=== PATIENT | female | born 1955 | race Caucasian/White ===

== ENCOUNTER 2018-10-08 18:46 | Inpatient (IN) | payer MEDICARE, OTHER ==
[2018-10-08] MEDS ORDERED: NS 0.9% 500 ML* 500 ML IV ONE (19:08)
[2018-10-08] MEDS ORDERED: NS 0.9% 1000 ML** 1,000 ML IV.FLUID IV ONE (19:12)
[2018-10-08 19:36] LABS: ABS Basophils 0 10^3/ul (0-0.2); ABS Eosinophils 0 10^3/ul (0-0.6); ABS Lymphocytes 0.3 10^3/ul (1.0-4.8); ABS Monocytes 0.2 10^3/ul (0-0.8); ABS Neutrophils 1.9 10^3/ul (1.5-7.7); ABS Nucleated RBC 0 10^3/ul; Eosinophil % 0 %; Hematocrit 29 % (35-47); Mean Corpuscular HGB Conc 35 g/dl (31-36); Mean Corpuscular Hemoglobin 38 pg (27-31); Mean Corpuscular Volume 110 fL (80-97); Mean Platelet Volume 6.9 fL (7.4-10.4); Nucleated Red Blood Cells % 0; Platelet Count 169 10^3/ul (150-450); Red Blood Count 2.64 10^6/ul (4.00-5.40); Red Cell Distribution Width 16 % (10.5-15); White Blood Count 2.3 10^3/ul (3.5-10.8)
--- NOTE | 2018-10-08 19:37 | ED ---
Influenza-Like Illness - HPI Summary HPI Summary: Patient is a 63-yea-old female with hx of peritoneal cancer and HTN presenting with 2 day hx cough, fatigue, and fever. Patient notes a fever of 104 orally at home prior to arrival, and 101 yesterday morning. She has been taking ibuprofen and hydrocodone. She is also experiencing congestion and decreased appetite. Denies sore throat, nausea, vomiting, or diarrhea. Patient recently began chemotherapy again in August with last treatment 2 weeks ago for peritoneal cancer and follows up with Dr. Cleveland. Denies receiving flu shot this year. No known sick contacts at home. She denies any chest pain and shortness of breath only with cough. no urinary symptoms or rash. She has no history of asthma or COPD. She is a smoker. - History of Current Complaint Chief Complaint: EDFluSymptoms Time Seen by Provider: 10/08/18 19:10 Hx Obtained From: Patient Onset/Duration: Gradual Onset, Lasting Days - symptom onset 2 days ago Severity: Moderate Associated Signs & Symptoms: Fever, Myalgia, Cough, Headache - mild - Risk Factors Influenza Risk Factors: Chronic Medical or Immunosuppresive Condition - Peritoneal cancer with chemotherapy - Allergy/Home Medications Allergies/Adverse Reactions: Allergies Allergy/AdvReac Type Severity Reaction Status Date / Time hydrochlorothiazide Allergy Intermediate Tachycardia Verified 05/18/18 09:37 ADHESIVE AND ADHESIVE TAPES Allergy RED Uncoded 05/18/18 09:37 PMH/Surg Hx/FS Hx/Imm Hx Endocrine/Hematology History: Denies: Hx Diabetes, Hx Systemic Lupus Erythematosus, Hx Anemia Cardiovascular History: Reports: Hx Hypertension Denies: Hx Aneurysm, Hx Angina, Hx Angioplasty, Hx Auto Implanted Cardiovert Defib, Hx Cardiac Arrest, Hx Cardiomegaly, Hx Congenital Heart Disease, Hx Congestive Heart Failure, Hx Coronary Artery Disease, Hx Deep Vein Thrombosis, Hx Pacemaker/ICD Respiratory History: Denies: Hx Asthma, Hx Chronic Obstructive Pulmonary Disease (COPD) Comment Only: Other Respiratory Problems/Disorders - INFUSAPORT INSERTION GI History: Reports: Other GI Disorders - diverticulitis, heartburn, HX History: Denies: Hx Dialysis, Hx Renal Disease Musculoskeletal History: Reports: Other Musculoskeletal History - pt states legs and feet sometimes ache/hurt Denies: Hx Rheumatoid Arthritis Sensory History: Reports: Hx Contacts or Glasses - GLASSES Denies: Hx Hearing Aid Opthamlomology History: Reports: Hx Contacts or Glasses - GLASSES Neurological History: Reports: Hx Migraine - OCCASIONAL, Other Neuro Impairments /Disorders - pt states slight neuropathy in feet Psychiatric History: Denies: Hx Panic Disorder - Cancer History Cancer Type, Location and Year: Ovarian AND PRIMARY - PERITONEAL Hx Chemotherapy: Yes Hx Radiation Therapy: No - Surgical History Surgery Procedure, Year, and Place: 1984 ;. 10/03/13 AND 10/22/13 [facility] ABDOMINAL SURGERY TO REMOVE CANCER (SEVERAL TO THE ABD WALL WHERE ABSCESS WAS) ;. APPENDECTOMY. TOTAL HYSTERECTOMY ;. POWER PORT Hx Anesthesia Reactions: No Infectious Disease History: No Infectious Disease History: Denies: Traveled Outside the [place] in Last 30 Days - Family History Known Family History: Positive: Other - No - Maligant Hypothermia - Social History Alcohol Use: None Alcohol Amount: 2 BEERS/WEEK Substance Use Type: Reports: None Smoking Status (MU): Former Smoker Type: Cigarettes Amount Used/How Often: 6 CIGARETTES PER DAY Length of Time of Smoking/Using Tobacco: 30 YEARS Have You Smoked in the Last Year: Yes Review of Systems Positive: Fever, Fatigue Negative: Palpitations, Chest Pain Positive: Cough. Negative: Shortness Of Breath Negative: Abdominal Pain, Vomiting, Diarrhea, Nausea Positive: no symptoms reported. Negative: dysuria, pain Positive: Myalgia Positive: Headache All Other Systems Reviewed And Are Negative: Yes Physical Exam Triage Information Reviewed: Yes Vital Signs On Initial Exam: Initial Vitals Temp Pulse Resp BP Pulse Ox 99.6 F 101 18 86/53 91 10/08/18 18:47 10/08/18 18:47 10/08/18 18:47 10/08/18 18:47 10/08/18 18:47 Vital Signs Reviewed: Yes Appearance: Positive: Well-Appearing, No Pain Distress, Well-Nourished Skin: Positive: Warm, Dry Head/Face: Positive: Normal Head/Face Inspection Eyes: Positive: Normal, EOMI, KALINA ENT: Positive: Normal ENT inspection, Pharynx normal, TMs normal. Negative: Nasal drainage, Tonsillar swelling, Tonsillar exudate Neck: Positive: Supple, Nontender, No Lymphadenopathy Respiratory/Lung Sounds: Positive: Clear to Auscultation, Breath Sounds Present Cardiovascular: Positive: Normal - Pulse 1+ upper extremity, Tachycardia. Negative: IRR, Murmur Abdomen Description: Positive: Nontender, No Organomegaly, Soft Bowel Sounds: Positive: Present Musculoskeletal: Positive: Normal, Strength/ROM Intact Neurological: Positive: Normal, Sensory/Motor Intact, Alert, Oriented to Person Place, Time Psychiatric: Positive: Normal, Affect/Mood Appropriate Diagnostics - Vital Signs Vital Signs Temp Pulse Resp BP Pulse Ox 10/08/18 18:47 99.6 F 101 18 86/53 91 - Laboratory Result Diagrams: 10/08/18 19:21 10/08/18 19:21 Lab Statement: Any lab studies that have been ordered have been reviewed, and results considered in the medical decision making process. - Radiology chest Radiology Interpretation Completed By: ED Physician Summary of Radiographic Findings: left lower lobe pneumonia - EKG No standard instances Cardiac Rate: NL EKG Rhythm: Sinus Rhythm EKG Comparison: No Significant Change Summary of EKG Findings: sinus rhythm, similiar to previous Re-Evaluation - Re-Evaluation First Eval Re-Evaluation Time: 20:15 Comment: no SOB at this time. O2 90. bp is 69/34 but is asympatomatic. did not take her blood pressure meds today. Second Eval Re-Evaluation Time: 20:41 Comment: discussed flu results. bp is now 77/47. Flu Symptom Course/Dx - Course Course Of Treatment: Patient presented to the ED with 2 day hx of cough, fever, and fatigue. Patient reported temperature of 104 today and 101 yesterday. She is currently recieving chemotherapy for peritoneal cancer, and denies reciving flu vaccine this year. Temperature of 99.6, BP 86/53, HR 101, and O2 91% upon arrival. Posterior Pharynx without erythema. Lungs CTA. RRR. Diminished radial pulse. Labs and cultutes were ordered. EKG reads NSR similar to previous visits. CXR findings suggestive of possible pneumonia in left lower lobe. flu A positive so gave tamiflu. Patient recieved IV fluids and was placed on cefepime. Will continue to monitor until vitals normalize. discussed with dr chavez who states patient should be admitted due to vitals. discussed with dr serrano who agrees to admit. - Diagnoses Differential Diagnosis/HQI/PQRI: Positive: Influenza, Pneumonia, Upper Respiratory Infection Provider Diagnoses: Influenza A, Pneumonia Critical Care Time: 30-74 min - 40 mins Discharge - Sign-Out/Discharge Documenting (check all that apply): Patient Departure Patient Received Moderate/Deep Sedation with Procedure: No - Discharge Plan Condition: Guarded Disposition: ADMITTED TO [facility] - Billing Disposition and Condition Condition: GUARDED Disposition: Admitted to [facility]
[2018-10-08 19:42] LABS: Activated Partial Thrombo Time 29.9 seconds (26.0-36.3); INR 1.02 (0.77-1.02)
[2018-10-08] MEDS ORDERED: Cefepime(*) 2 GM in NS 0.9% 50 ML* 50 ML IVPB ONE (19:42)
[2018-10-08] MEDS ORDERED: Levofloxacin 750 MG IVPREMIX(* 750 MG/150 ML BAG IVPB ONE (19:42)
[2018-10-08 19:46] LABS: ALT 29 U/L (7-52); AST 32 U/L (13-39); Albumin/Globulin Ratio 1.7 (1-3); Alkaline Phosphatase 57 U/L (34-104); Anion Gap 10 mmol/L (2-11); BUN/Creatinine Ratio 10.5 (8-20); Blood Urea Nitrogen 13 mg/dL (6-24); CO2 Carbon Dioxide 24 mmol/L (22-32); Calcium 8.6 mg/dL (8.6-10.3); Chloride 96 mmol/L (101-111); EGFR African American 53.2 (>60); Globulin 2.3 g/dL (2-4); Glucose 150 mg/dL (70-100); Potassium 3.1 mmol/L (3.5-5.0); Sodium 130 mmol/L (135-145); Total Protein 6.3 g/dL (6.4-8.9)
[2018-10-08] MEDS ORDERED: Potassium Chlor TAB* 20 MEQ TAB.ER PO ONE (19:49)
[2018-10-08] MEDS ORDERED: NS 0.9% 1000 ML** 1,000 ML IV ONE (20:08)
[2018-10-08 20:26] LABS: Influenza A Molecular POSITIVE (Negative)
[2018-10-08] MEDS ORDERED: NS 0.9% 50 ML* 50 ML ONE (20:29)
[2018-10-08] MEDS ORDERED: Oseltamivir CAP* 75 MG CAP PO ONE (20:32)
[2018-10-08] MEDS ORDERED: Cefepime* 2 GM in Dextrose 50mL Q24H (Duplex) IV ONE (21:00)
[2018-10-08] MEDS ORDERED: Phytonadione IV (Adult)* 10 MG/ML 1 ML AMP IV ONE (21:15)
[2018-10-08 21:26] LABS: C Reactive Protein 94.73 mg/L (<8.01)
[2018-10-08 21:53] LABS: Magnesium 1.4 mg/dL (1.9-2.7)
[2018-10-08] MEDS ORDERED: Magnesium Chloride EC TAB* 64 MG PO ONE (22:09)
[2018-10-08] MEDS ORDERED: Magnesium Sulfate IV* 3 GM in NS 0.9% 100 ML* 100 ML IVPB ONE (22:54)
[2018-10-08] MEDS ORDERED: NS 0.9% 1000 ML** 1,000 ML IV SCH (23:00)
[2018-10-09] MEDS ORDERED: Melatonin 3 MG TAB PO PRN (00:04)
[2018-10-09] MEDS ORDERED: Acetaminophen TAB* 325 MG ONE (00:05)
[2018-10-09] MEDS: Acetaminophen TAB* 325 MG PO PRN ×2 (00:08→11:47)
[2018-10-09] MEDS: Heparin VIAL(*) 5000 UNITS/ML VIAL (FIVE THOUSAND) SUBCUT SCH ×4 (00:56→21:35)
--- NOTE | 2018-10-09 01:19 | HP ---
CC: Dr. Cleveland * HISTORY AND PHYSICAL: DATE OF ADMISSION: 10/08/18 PROVIDER: Leila Iyer NP PRIMARY CARE PROVIDER: Dr. Cleveland. ATTENDING PHYSICIAN WHILE IN THE HOSPITAL: Dr. Krysten Driscoll * (dictated by Leila Iyer NP). CHIEF COMPLAINT: Fatigue and cough. HISTORY OF PRESENT ILLNESS: Ms. Sotvall is a 63-year-old female with a past medical history significant for hypertension, history of CVA, and peritoneal cancer, currently on chemo, who presented to the emergency room with complaints of increased fatigue x2 days and decreased appetite. The patient reports that she has had a cough for approximately 1 week and on Friday started feeling poorly with increased fatigue and decreased appetite. The patient also reports that she had fevers and chills at home. Due to the increased fatigue and cough , she presented to the emergency room for further evaluation. While in the emergency room, the patient had routine lab work drawn. She was found to be hypotensive and positive for influenza A as well as questionable right-sided pneumonia on chest x-ray. The patient denies any chest pain or edema. Denies any coughing up blood or shortness of breath. Denies any nausea , vomiting, diarrhea, or abdominal pain. Denies any urinary frequency or urgency. She denies any joint or muscle aches. Denies any rashes, lesions, or open sores. PAST MEDICAL HISTORY: Significant for: 1. Hypertension. 2. History of CVA. 3. History of peritoneal cancer, currently on chemo. PAST SURGICAL HISTORY: 1. . 2. Right knee surgery. 3. Hysterectomy. 4. Appendectomy. 5. Peritoneal scraping. HOME MEDICATIONS: 1. Amlodipine 5 mg p.o. daily. 2. Atorvastatin 40 mg p.o. daily. 3. Compazine 10 mg p.o. q.8 hours as needed for nausea. 4. Oxycodone 5 mg p.o. q.6 hours as needed for pain. 5. Zofran 8 mg p.o. daily as needed for nausea. 6. Omeprazole 40 mg p.o. q.a.m. 7. Multivitamin 1 tablet p.o. daily - the patient currently reports she is currently not taking. 8. Metoprolol 50 mg p.o. b.i.d. 9. Magnesium oxide 400 mg p.o. t.i.d. 10. Lorazepam 1 mg p.o. t.i.d. as needed. 11. Lisinopril 40 mg p.o. daily. ALLERGIES: Allergy to: 1. HYDROCHLOROTHIAZIDE. 2. ADHESIVE TAPE. FAMILY HISTORY: No reported history of cancer. SOCIAL HISTORY: The patient reports she smokes half a pack per day. Reports occasional alcohol use. Denies any illicit drug use. She is . She lives with her . Surrogate decision maker in the event she is unable to make her own decisions is her . She is a full code. REVIEW OF SYSTEMS: She does report fevers and decreased appetite at home. Denies any chest pain or edema. She does report a cough. Denies any hemoptysis or shortness of breath. Denies any nausea, vomiting, diarrhea, or abdominal pain. Denies any hematuria, dysuria, focal weakness, or sensory loss. Denies any visual complaints, dysphagia, arthralgias, myalgias, rashes, lesions, psychosis, or anxiety. PHYSICAL EXAMINATION GENERAL: At this time, Ms. Stovall is a 63-year-old female. She appears well, resting on the stretcher in the emergency room. She is not in any acute distress. VITAL SIGNS: Blood pressure 96/55, heart rate is 83, O2 saturation 96%, temperature was 99.6. HEENT: Head is atraumatic, normocephalic. Eyes: EOMs are intact. Sclerae anicteric and not pale. Oral mucosa appeared to be dry. NECK: Supple. LUNGS: Clear to auscultation bilaterally. No wheezes, rales, or rhonchi. CARDIAC: S1, S2. Regular rate and rhythm. No murmurs, rubs, or gallops. ABDOMEN: Soft and nontender. Bowel sounds are present x4. EXTREMITIES: Pedal pulses are +2 bilaterally. She is able to move all 4 extremities with 5/5 strength. NEUROLOGIC: She is awake, alert, and oriented x3. Speech is clear. Thought process is intact. No gross focal deficits. SKIN: Intact. LABORATORY DATA AND DIAGNOSTIC STUDIES: WBCs are 2.3, RBCs 2.64, hemoglobin 10 , hematocrit was 29, platelet count 169. INR 1.02. Sodium 130, potassium 3.1, chloride 96, creatinine 1.24, glucose was 150. Lactic acid was 2.0 and repeat was 0.7. Calcium 8.6, magnesium 1.4. ASTs were 32, ALTs were 29. Troponin 0.00. C-reactive protein was 94.73. Lipase was less than 10. Flu A was positive. She had a chest x-ray which was reviewed by myself and Dr. Driscoll, concern for right- sided pneumonia. Electrocardiogram showed sinus rhythm at a rate of 87. ASSESSMENT AND PLAN: Ms. Stovall is a 63-year-old female with a past medical history of peritoneal cancer, hypertension, and history of cerebrovascular accident who presented to the emergency room with complaints of fatigue, weakness, and cough. We were asked to see and evaluate her due to concern for influenza and pneumonia. She will be admitted under observation for: 1. Influenza A. The patient will be placed on Tamiflu 75 mg p.o. b.i.d. for 5 days. We will treat her fever symptomatically with Tylenol as needed. 2. Shortness of breath. I suspect the patient has right-sided pneumonia. We will place her on azithromycin and ceftriaxone. I suspect this could also be related to influenza. We will continue to treat her with Tamiflu 75 mg p.o. b.i.d. We will continue IV fluids. I will give her another liter bolus and then continue fluids at 150 an hour. I will send urine for legionella and Strep pneumoniae. She had blood cultures, are currently pending. Urine culture is pending. 3. Peritoneal cancer. Management per Oncology. 4. Hypokalemia. We will give her potassium 40 mEq IV and repeat her potassium level in the morning. She did receive 20 mEq p.o. in the emergency room. 5. Hypomagnesemia. She will given 3 g of magnesium IV and repeat a mag level in the a.m. 6. Acute kidney injury. She does have an elevated creatinine. We will give her IV hydration. I suspect this could be related to dehydration as the patient has had a decreased appetite for the past several days. We will repeat BMP in the a.m. 7. Hypertension. The patient is hypotensive at this time. I am going to hold her amlodipine, lisinopril, and metoprolol at this time. We can resume these as blood pressure allows. 8. FEN. The patient can have a heart healthy, decaf okay diet. 9. Code status. She is a full code. 10. DVT prophylaxis. We will place her on heparin subcu. 11. Disposition. The patient will be placed inpatient and transferred to oncology service in the a.m. TIME SPENT: Time spent on this admission was approximately 60 minutes, greater than half that time was spent [id number] with the patient obtaining my history and physical, the other half time was spent going over my plan of care and implementing my plan of care. I have discussed this with my attending, Dr. Krysten Driscoll; she is in agreement with my plan. LEILA IYER, VARNISH BLENDER [id number]/CPS #: [id number] KARLENE
[2018-10-09] MEDS: LORazepam TAB(*) 1 MG PO PRN ×2 (01:37→21:36)
[2018-10-09 02:19] LABS: Urine Appearance Clear; Urine Bilirubin Negative (Negative); Urine Blood Negative (Negative); Urine Color Straw; Urine Glucose Negative (Negative); Urine Ketones Negative (Negative); Urine Nitrite Negative (Negative); Urine Protein Negative (Negative); Urine Specific Gravity 1.005 (1.010-1.030); Urine Urobilinogen Negative (Negative)
[2018-10-09] MEDS ORDERED: KCL 20 MEQ/100 ML IVPREMIX* 20 MEQ/100 ML BAG IV SCH (03:17)
[2018-10-09] MEDS: NS 0.9% 1000 ML** 1,000 ML IV SCH ×3 (03:43→16:16)
[2018-10-09] MEDS: KCL 20 MEQ/100 ML IVPREMIX* 20 MEQ/100 ML BAG IV SCH ×3 (03:44→06:35)
[2018-10-09] MEDS ORDERED: NS 0.9% 500 ML* 500 ML IV ONE (03:59)
[2018-10-09 05:29] LABS: ABS Basophils 0 10^3/ul (0-0.2); ABS Eosinophils 0 10^3/ul (0-0.6); ABS Lymphocytes 0.6 10^3/ul (1.0-4.8); ABS Monocytes 0.2 10^3/ul (0-0.8); ABS Neutrophils 2.2 10^3/ul (1.5-7.7); ABS Nucleated RBC 0 10^3/ul; Eosinophil % 0.1 %; Hematocrit 24 % (35-47); Lymphocyte % 18.6 %; Mean Corpuscular HGB Conc 34 g/dl (31-36); Mean Corpuscular Hemoglobin 37 pg (27-31); Mean Corpuscular Volume 111 fL (80-97); Mean Platelet Volume 6.9 fL (7.4-10.4); Nucleated Red Blood Cells % 0.1; Platelet Count 146 10^3/ul (150-450); Red Blood Count 2.13 10^6/ul (4.00-5.40); Red Cell Distribution Width 16 % (10.5-15)
[2018-10-09 05:45] LABS: BUN/Creatinine Ratio 15.8 (8-20); Calcium 7.5 mg/dL (8.6-10.3); EGFR African American 93.6 (>60); EGFR Non-African American 77.4 (>60); Magnesium 2.7 mg/dL (1.9-2.7); Potassium 3.5 mmol/L (3.5-5.0)
[2018-10-09] MEDS: cefTRIAXone(*) 1 GM in NS 0.9% 50 ML* 50 ML IVPB SCH (09:24)
[2018-10-09] MEDS: Oseltamivir CAP* 75 MG CAP PO SCH ×2 (09:30→21:35)
[2018-10-09] MEDS: Pantoprazole TAB * 40 MG TAB PO SCH (09:30)
[2018-10-09] MEDS: Magnesium Oxide TAB* 400 MG PO SCH ×3 (09:31→21:35)
--- NOTE | 2018-10-09 10:20 | PN ---
Progress Note - Progress Note Date of Service: 10/09/18 SOAP: Subjective: [Admitted with influenza and secondary PNA. Hypotensive overnight, but no further fevers. She reports that she is feeling much better this morning. No SOB, persistent cough. Appetite good.] Objective: [ Laboratory Results - last 24 hr 10/08/18 10/08/18 10/08/18 19:21 19:21 19:21 WBC 2.3 L RBC 2.64 L Hgb 10.0 L Hct 29 L MCV 110 H MCH 38 H MCHC 35 RDW 16 H Plt Count 169 MPV 6.9 L Neut % (Auto) 82.2 Lymph % (Auto) 11.0 [place] % (Auto) 6.5 Eos % (Auto) 0 Baso % (Auto) 0.3 Absolute Neuts (auto) 1.9 Absolute Lymphs (auto) 0.3 L Absolute Monos (auto) 0.2 Absolute Eos (auto) 0 Absolute Basos (auto) 0 Absolute Nucleated RBC 0 Nucleated RBC % 0 INR (Anticoag Therapy) 1.02 APTT 29.9 Sodium 130 L Potassium 3.1 L Chloride 96 L Carbon Dioxide 24 Anion Gap 10 BUN 13 Creatinine 1.24 H Est GFR ( Amer) 53.2 Est GFR (Non-Af Amer) 44.0 BUN/Creatinine Ratio 10.5 Glucose 150 H Lactic Acid Calcium 8.6 Magnesium 1.4 L Total Bilirubin 0.30 AST 32 ALT 29 Alkaline Phosphatase 57 Troponin I 0.00 C-Reactive Protein 94.73 H Total Protein 6.3 L Albumin 4.0 Globulin 2.3 Albumin/Globulin Ratio 1.7 Lipase < 10 L Urine Color Urine Appearance Urine pH Ur Specific [place] Urine Protein Urine Ketones Urine Blood Urine Nitrate Urine Bilirubin Urine Urobilinogen Ur Leukocyte Esterase Urine Glucose Influenza A (Rapid) 10/08/18 10/08/18 10/08/18 19:21 20:20 22:54 WBC RBC Hgb Hct MCV MCH MCHC RDW Plt Count MPV Neut % (Auto) Lymph % (Auto) [place] % (Auto) Eos % (Auto) Baso % (Auto) Absolute Neuts (auto) Absolute Lymphs (auto) Absolute Monos (auto) Absolute Eos (auto) Absolute Basos (auto) Absolute Nucleated RBC Nucleated RBC % INR (Anticoag Therapy) APTT Sodium Potassium Chloride Carbon Dioxide Anion Gap BUN Creatinine Est GFR ( Amer) Est GFR (Non-Af Amer) BUN/Creatinine Ratio Glucose Lactic Acid 2.0 0.7 Calcium Magnesium Total Bilirubin AST ALT Alkaline Phosphatase Troponin I C-Reactive Protein Total Protein Albumin Globulin Albumin/Globulin Ratio Lipase Urine Color Urine Appearance Urine pH Ur Specific [place] Urine Protein Urine Ketones Urine Blood Urine Nitrate Urine Bilirubin Urine Urobilinogen Ur Leukocyte Esterase Urine Glucose Influenza A (Rapid) Positive A 10/09/18 10/09/18 10/09/18 02:07 05:20 05:20 WBC 3.0 L RBC 2.13 L Hgb 8.0 L Hct 24 L MCV 111 H MCH 37 H MCHC 34 RDW 16 H Plt Count 146 L MPV 6.9 L Neut % (Auto) 74.4 Lymph % (Auto) 18.6 [place] % (Auto) 6.3 Eos % (Auto) 0.1 Baso % (Auto) 0.6 Absolute Neuts (auto) 2.2 Absolute Lymphs (auto) 0.6 L Absolute Monos (auto) 0.2 Absolute Eos (auto) 0 Absolute Basos (auto) 0 Absolute Nucleated RBC 0 Nucleated RBC % 0.1 INR (Anticoag Therapy) APTT Sodium 137 Potassium 3.5 Chloride 111 Carbon Dioxide 24 Anion Gap 2 BUN 12 Creatinine 0.76 Est GFR ( Amer) 93.6 Est GFR (Non-Af Amer) 77.4 BUN/Creatinine Ratio 15.8 Glucose 92 Lactic Acid Calcium 7.5 L Magnesium 2.7 Total Bilirubin AST ALT Alkaline Phosphatase Troponin I C-Reactive Protein Total Protein Albumin Globulin Albumin/Globulin Ratio Lipase Urine Color Straw Urine Appearance Clear Urine pH 5.0 Ur Specific [place] 1.005 L Urine Protein Negative Urine Ketones Negative Urine Blood Negative Urine Nitrate Negative Urine Bilirubin Negative Urine Urobilinogen Negative Ur Leukocyte Esterase Negative Urine Glucose Negative Influenza A (Rapid) Acetaminophen (Tylenol Tab*) 650 mg PO Q4H PRN PRN Reason: FEVER/PAIN Last Admin: 10/09/18 00:08 Dose: 650 mg Atorvastatin Calcium (Lipitor*) 40 mg PO 2100 ANTHONY Heparin Sodium (Porcine) (Heparin Vial(*)) 5,000 units SUBCUT Q8HR ANTHONY Last Admin: 10/09/18 06:26 Dose: Not Given Sodium Chloride (Ns 0.9% 1000 Ml) 1,000 mls @ 150 mls/hr IV PER RATE ANTHONY Stop: 10/10/18 05:39 Last Admin: 10/09/18 09:28 Dose: 150 mls/hr Ceftriaxone Sodium 1 gm/ (Sodium Chloride) 50 mls @ 200 mls/hr IVPB Q24H [facility] Last Admin: 10/09/18 09:24 Dose: 200 mls/hr Azithromycin 500 mg/ Sodium (Chloride) 250 mls @ 250 mls/hr IVPB Q24H [facility] Lorazepam (Ativan Tab(*)) 3 mg PO BEDTIME PRN PRN Reason: ANXIETY Last Admin: 10/09/18 01:37 Dose: 3 mg Magnesium Oxide (Magox 400 Tab*) 400 mg PO TID [facility] Last Admin: 10/09/18 09:31 Dose: 400 mg Melatonin (Melatonin) 3 mg PO BEDTIME PRN; Protocol PRN Reason: SLEEP Oseltamivir Phosphate (Tamiflu Cap*) 75 mg PO BID [facility] Stop: 10/13/18 09:01 Last Admin: 10/09/18 09:30 Dose: 75 mg Pantoprazole Sodium (Protonix Tab*) 40 mg PO QAM [facility] Last Admin: 10/09/18 09:30 Dose: 40 mg Vital Signs: Temp Pulse Resp BP Pulse Ox 98.4 F 93 20 102/63 94 10/09/18 07:20 10/09/18 07:20 10/09/18 07:20 10/09/18 07:20 10/09/18 07:20 Exam: Gen: 63 yo female in NAD. 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 Presented with fever and cough, positive for influenza A with noted LLL infiltrate on CXR.] Plan: [1. Influenza A with secondary PNA - improving, no hypoxia - hypotension resolving - cont ceftriaxone, azithromycin and Tamiflu 2. NURY secondary to hypovolemia - improved with IVF 3. Anemia - noted drop in Hgb since admission, likely dilutional - she is asx - hold on transfusion and monitor 4. Primary peritoneal carcinoma - treated by Dr Cleveland - kiara C3 until recovered from current acute illness Dispo: possible discharge home tomorrow]
[2018-10-09] MEDS ORDERED: Prochlorperazine TAB* 10 MG PO PRN (10:54)
[2018-10-09] MEDS ORDERED: oxyCODONE TAB* 5 MG TAB PO PRN (10:54)
[2018-10-09] MEDS ORDERED: Ondansetron INJ* 2 MG/ML VIAL IV PRN (10:55)
[2018-10-09] MEDS ORDERED: Azithromycin IV(*) 500 MG in NS 0.9% 250 ML* 250 ML IVPB SCH (19:00)
[2018-10-09] MEDS ORDERED: Atorvastatin* 40 MG TAB PO SCH (21:00)
[2018-10-10] MEDS: NS 0.9% 1000 ML** 1,000 ML IV SCH (00:43)
[2018-10-10] MEDS: Acetaminophen TAB* 325 MG PO PRN (05:35)
[2018-10-10] MEDS: Heparin VIAL(*) 5000 UNITS/ML VIAL (FIVE THOUSAND) SUBCUT SCH (05:52)
[2018-10-10 05:56] LABS: ABS Basophils 0 10^3/ul (0-0.2); ABS Eosinophils 0 10^3/ul (0-0.6); ABS Lymphocytes 0.9 10^3/ul (1.0-4.8); ABS Monocytes 0.3 10^3/ul (0-0.8); ABS Neutrophils 2.9 10^3/ul (1.5-7.7); ABS Nucleated RBC 0 10^3/ul; Eosinophil % 0.2 %; Hematocrit 24 % (35-47); Hemoglobin 8.5 g/dl (12.0-16.0); Lymphocyte % 21.9 %; Mean Corpuscular HGB Conc 35 g/dl (31-36); Mean Corpuscular Hemoglobin 38 pg (27-31); Mean Corpuscular Volume 110 fL (80-97); Nucleated Red Blood Cells % 0; Platelet Count 175 10^3/ul (150-450); Red Blood Count 2.22 10^6/ul (4.00-5.40); Red Cell Distribution Width 16 % (10.5-15); White Blood Count 4.1 10^3/ul (3.5-10.8)
[2018-10-10 06:11] LABS: BUN/Creatinine Ratio 8.9 (8-20); Calcium 8.2 mg/dL (8.6-10.3); EGFR African American 133.2 (>60); EGFR Non-African American 110.1 (>60); Potassium 3.4 mmol/L (3.5-5.0)
[2018-10-10 07:48] VITALS: BP 141/80
[2018-10-10] MEDS: Magnesium Oxide TAB* 400 MG PO SCH (08:40)
[2018-10-10] MEDS: Oseltamivir CAP* 75 MG CAP PO SCH (08:40)
[2018-10-10] MEDS: Pantoprazole TAB * 40 MG TAB PO SCH (08:40)
[2018-10-10] MEDS: cefTRIAXone(*) 1 GM in NS 0.9% 50 ML* 50 ML IVPB SCH (08:41)
--- NOTE | 2018-10-10 10:22 | PN ---
Progress Note - Progress Note Date of Service: 10/10/18 SOAP: Subjective: [] Feels well today. Ready to go home. Breathing is stable. Eating well, diarrhea resolved. No fevers or chills. Active Medications Generic Name Dose Route Start Last Admin Trade Name Freq PRN Reason Stop Dose Admin Acetaminophen 650 mg 10/09/18 00:00 10/10/18 05:35 Tylenol Tab* PO 650 mg Q4H PRN Administration FEVER/PAIN Atorvastatin Calcium 40 mg 10/09/18 21:00 10/09/18 21:36 Lipitor* PO 40 mg 2100 ANTHONY Administration Heparin Sodium (Porcine) 5,000 units 10/09/18 00:50 10/10/18 05:52 Heparin Vial(*) SUBCUT 5,000 units Q8HR ANTHONY Administration Heparin Sodium (Porcine) 5 ml 10/10/18 04:30 10/10/18 09:30 Heparin Flush Port ([place]) FLUSH 5 ml DAILY ANTHONY Administration Protocol Ceftriaxone Sodium 1 gm/ 50 mls @ 200 mls/hr 10/09/18 09:00 10/10/18 08:41 Sodium Chloride IVPB 200 mls/hr Q24H ANTHONY Administration Azithromycin 500 mg/ Sodium 250 mls @ 250 mls/hr 10/09/18 19:00 10/09/18 19: 32 Chloride IVPB 250 mls/hr Q24H ANTHONY Administration Lorazepam 3 mg 10/09/18 00:47 10/09/18 21:36 Ativan Tab(*) PO 3 mg BEDTIME PRN Administration ANXIETY Magnesium Oxide 400 mg 10/09/18 09:00 10/10/18 08:40 Magox 400 Tab* PO 400 mg TID ANTHONY Administration Melatonin 3 mg 10/09/18 00:04 Melatonin PO BEDTIME PRN SLEEP Protocol Ondansetron HCl 4 mg 10/09/18 10:55 Zofran Inj* IV Q4H PRN NAUSEA Oseltamivir Phosphate 75 mg 10/09/18 09:00 10/10/18 08:40 Tamiflu Cap* PO 10/13/18 09:01 75 mg BID ANTHONY Administration Oxycodone HCl 10 mg 10/09/18 10:54 10/09/18 11:47 Roxycodone Tab* PO 10 mg Q4H PRN Administration PAIN Pantoprazole Sodium 40 mg 10/09/18 09:00 10/10/18 08:40 Protonix Tab* PO 40 mg QAM ANTHONY Administration Prochlorperazine 10 mg 10/09/18 10:54 10/09/18 11:48 Compazine Tab* PO 10 mg Q8H PRN Administration NAUSEA Objective: [] Vital Signs Temp Pulse Resp BP Pulse Ox 98.2 F 112 18 141/80 96 10/10/18 07:41 10/10/18 07:41 10/10/18 07:46 10/10/18 07:41 10/10/18 07:48 Exam: Gen: 63 yo female in NAD. 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 Presented with fever and cough, positive for influenza A with noted LLL infiltrate on CXR.] Plan: [1. Influenza A with secondary PNA - improving, no hypoxia - Discharge today on Tamiflu 75 mg twice a day for 3 additional days, levofloxacin 500 mg daily for 7 days. 2. NURY secondary to hypovolemia. Resolved. - improved with IVF 3. Anemia. Stable today, we'll recheck next week. 4. Primary peritoneal carcinoma. She would like to continue chemotherapy on . Okay to treat as long as all symptoms of flu are resolved. 5. Discharge home today.
== END 2018-10-10 11:00 | disposition home or self-care (01) | DRG 194 ==
LOC: ED 18:46 → MEDTELE 22:47
PROVIDERS: ADMIT Internal Medicine; ATTEND Internal Medicine Hematology & Oncology
DX: J10.00 Influenza due to other identified influenza virus with unspecified type of pneumonia (principal); C48.2 Malignant neoplasm of peritoneum, unspecified; N17.9 Acute kidney failure, unspecified; I95.9 Hypotension, unspecified; I10 Essential (primary) hypertension; F17.210 Nicotine dependence, cigarettes, uncomplicated; E87.6 Hypokalemia; E83.42 Hypomagnesemia; G43.909 Migraine, unspecified, not intractable, without status migrainosus; G62.9 Polyneuropathy, unspecified; E86.1 Hypovolemia; D64.9 Anemia, unspecified; Z86.73 Personal history of transient ischemic attack (TIA), and cerebral infarction without residual deficits; Z90.710 Acquired absence of both cervix and uterus; Z90.89 Acquired absence of other organs; Z88.8 Allergy status to other drugs, medicaments and biological substances; Z72.89 Other problems related to lifestyle; Z85.43 Personal history of malignant neoplasm of ovary; Z91.048 Other nonmedicinal substance allergy status
CPT/HCPCS: 36415; 71045; 80048; 80053; 81003; 83605; 83690; 83735; 84484; 85025; 85610; 85730; 86140; 87040; 87070; 87205; 87899; 93005; 99232; 99239; 99284; A9270-GY; J0456; J0692; J0696; J1642; J1644; J3475; J3480; Q0164

== ENCOUNTER 2019-10-25 13:23 | Observation (INO) | payer MEDICARE, OTHER ==
[~2019-10-25 13:23] MED LIST: EPINEPHRINE 1 MG/ML 1 ML VIAL IM PRN; Famotidine IV* 10 MG/ML 2 ML (20 mg) IV SLOW PU PRN; Ondansetron INJ* 2 MG/ML VIAL IV PRN; Scopolamine 1.5 mg* PATCH TRANSDERM SCH; diPHENhydraMINE IV* 50 MG/ML 1 ml VIAL (BENADRYL) IV PRN; methylPREDNISolone 125 MG* 2 ML VIAL IV PRN
[2019-10-25] MEDS ORDERED: Albuterol 2.5 MG/3 ML NEB.SOL* (0.083%) INH PRN (13:54)
[2019-10-25] MEDS ORDERED: [UNRECOGNIZED DRUG - OTHER] IVPB ONE (14:00)
[2019-10-25] MEDS ORDERED: NS 0.9% IVPB ONE ×4 (14:00→17:00)
[2019-10-25] MEDS ORDERED: [UNRECOGNIZED DRUG - OTHER] IVPB ONE (15:00)
[2019-10-25 15:11] VITALS: BP 96/71
[2019-10-25] MEDS ORDERED: diPHENhydraMINE IV* 50 MG/ML 1 ml VIAL (BENADRYL) IV ONE (16:00)
[2019-10-25] MEDS ORDERED: [UNRECOGNIZED DRUG - OTHER] IVPB ONE (16:00)
[2019-10-25] MEDS ORDERED: CARBOPLATIN IVPB ONE (17:00)
== END 2019-10-25 19:00 | disposition home or self-care (01) ==
LOC: MEDTELE 13:38
PROVIDERS: ADMIT Internal Medicine Hematology & Oncology; ATTEND Internal Medicine Hematology & Oncology
DX: C56.9 Malignant neoplasm of unspecified ovary (principal); F41.9 Anxiety disorder, unspecified; I10 Essential (primary) hypertension; G62.9 Polyneuropathy, unspecified; Z79.82 Long term (current) use of aspirin; Z79.899 Other long term (current) drug therapy; Z86.73 Personal history of transient ischemic attack (TIA), and cerebral infarction without residual deficits; Z51.12 Encounter for antineoplastic immunotherapy; Z51.11 Encounter for antineoplastic chemotherapy; C78.6 Secondary malignant neoplasm of retroperitoneum and peritoneum; S31.109A Unspecified open wound of abdominal wall, unspecified quadrant without penetration into peritoneal cavity, initial encounter; X58.XXXA Exposure to other specified factors, initial encounter; M25.539 Pain in unspecified wrist; R11.0 Nausea
CPT/HCPCS: 96365; 96366; 96367; 96375; 99219; A9270-GY; G0378; J1200; J1642; J2405; J2930; J9045

== ENCOUNTER 2019-11-08 06:34 | Inpatient (IN) | payer MEDICARE, OTHER ==
--- NOTE | 2019-11-08 06:51 | ED ---
Altered Mental Status - HPI Summary HPI Summary: Patient is a 64 y/o F arriving via ambulance to [facility] accompanied by daughter cc of AMS since 0200 this morning. 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 Cleveland. This morning around 0200, the patient s noticed she had some AMS. Daughter at bedside notes decreased PO intake with new plan for possible hospice and concern for dehydration. Patient also had been vomiting. observed some slurred speech yesterday evening that is improving, but the patients daughter states it is still occurring. Patient had previous CVAs with dysarthria. Patient not in any pain now. PMHx: HTN, diverticulitis. Former smoker, no EtOH, no substance use. Medications reviewed. Allergies noted. Level 5 caveat secondary to AMS. History obtained from family, EMS, medical records. - History Of Current Complaint Chief Complaint: EDAltMentalStatus Stated Complaint: AMS/UNABLE TO AMBULATE PER EMS Time Seen by Provider: 11/08/19 06:41 Hx Obtained From: Family/[employer]ers[employer] Supervisor, EMS, Medical Records Hx From Patient Unobtainable Due To: Altered Mental Status - Level 5 caveat Onset/Duration: Still Present Timing: Lasting Hours Severity Currently: Mild Aggravating Factor(s): Unknown Associated Signs And Symptoms: Positive: Vomiting Related History: Similar Episode/Diagnosed As: - CVAs with dysarthria - Allergies/Home Medications Allergies/Adverse Reactions: Allergies Allergy/AdvReac Type Severity Reaction Status Date / Time hydrochlorothiazide Allergy Intermediate Tachycardia Verified 11/08/19 06:40 adhesive Allergy See Comment Verified 11/08/19 06:40 adhesive tape Allergy See Comment Verified 11/08/19 06:40 Home Medications: Home Medications Oxycodone Cap(Nf) [Oxy IR (NF) (this brand D/C by )] 5 mg PO Q6HR PRN 07/22 [History Confirmed 11/08/19] Amlodipine Besylate [Norvasc 5 mg tab] 5 mg PO DAILY 02/02/16 [History Confirmed 11/08/19] Ondansetron HCl [Zofran 8 MG TAB] 8 mg PO TID PRN 01/13/17 [History Confirmed ] Atorvastatin* [Lipitor 40 MG*] 80 mg PO DAILY 08/10/19 [History Confirmed ] Dexamethasone TAB* [Decadron TAB*] 4 mg PO BID PRN 10/25/19 [History Confirmed 11/08/19] Scopolamine 1.5 mg* PATCH* [Transderm-Scop 1.5 mg Patch*] 1 patch TRANSDERM Q72H PRN 10/25/19 [History Confirmed 11/08/19] Aspirin EC TAB* [Ecotrin EC Low Dose 81 MG*] 81 mg PO DAILY 11/08/19 [History Confirmed 11/08/19] Escitalopram * [Lexapro *] 20 mg PO DAILY 11/08/19 [History Confirmed 11/08/19] LORazepam TAB(*) [Ativan 1 MG TAB (*)] 1 - 2 mg PO TID PRN 11/08/19 [History Confirmed 11/08/19] Metoclopramide TAB* [Reglan TAB*] 10 mg PO TID 11/08/19 [History Confirmed 11/07] Metoprolol Tartrate TAB* [Lopressor TAB*] 50 mg PO BID 11/08/19 [History Confirmed 11/08/19] Omeprazole CAP (NF) [Prilosec CAP* 20 MG] 40 mg PO DAILY 11/08/19 [History Confirmed 11/08/19] PMH/Surg Hx/FS Hx/Imm Hx Endocrine/Hematology History: Denies: Hx Diabetes, Hx Systemic Lupus Erythematosus, Hx Anemia Cardiovascular History: Reports: Hx Hypertension Denies: Hx Aneurysm, Hx Angina, Hx Angioplasty, Hx Auto Implanted Cardiovert Defib, Hx Cardiac Arrest, Hx Cardiomegaly, Hx Congenital Heart Disease, Hx Congestive Heart Failure, Hx Coronary Artery Disease, Hx Deep Vein Thrombosis, Hx Pacemaker/ICD Respiratory History: Denies: Hx Asthma, Hx Chronic Obstructive Pulmonary Disease (COPD) Comment Only: Other Respiratory Problems/Disorders - INFUSAPORT INSERTION GI History: Reports: Other GI Disorders - diverticulitis, heartburn, HX History: Denies: Hx Dialysis, Hx Renal Disease Musculoskeletal History: Reports: Other Musculoskeletal History - pt states legs and feet sometimes ache/hurt Denies: Hx Rheumatoid Arthritis Sensory History: Reports: Hx Contacts or Glasses Denies: Hx Hearing Aid Opthamlomology History: Reports: Hx Contacts or Glasses Neurological History: Reports: Hx Migraine - OCCASIONAL, Other Neuro Impairments /Disorders - pt states slight neuropathy in feet Psychiatric History: Reports: Hx Anxiety Denies: Hx Panic Disorder - Cancer History Cancer Type, Location and Year: Ovarian AND PRIMARY - PERITONEAL Hx Chemotherapy: Yes Hx Radiation Therapy: No - Surgical History Surgical History: Yes Surgery Procedure, Year, and Place: 1984 ;. 10/03/13 AND 10/22/13 [facility] ABDOMINAL SURGERY TO REMOVE CANCER (SEVERAL TO THE ABD WALL WHERE ABSCESS WAS) ;. APPENDECTOMY. TOTAL HYSTERECTOMY ;. POWER PORT Hx Anesthesia Reactions: No Infectious Disease History: No Infectious Disease History: Denies: Traveled Outside the [place] in Last 30 Days - Family History Known Family History: Positive: Other - No - Maligant Hypothermia - Social History Alcohol Use: None Alcohol Amount: 2 BEERS/WEEK Hx Substance Use: No Substance Use Type: Reports: None Hx Tobacco Use: Yes Smoking Status (MU): Former Smoker Type: Cigarettes Amount Used/How Often: 6 CIGARETTES PER DAY Length of Time of Smoking/Using Tobacco: 30 YEARS Have You Smoked in the Last Year: Yes Review of Systems Positive: Vomiting Neurological/Mental Status: Other - AMS Positive: Slurred Speech All Other Systems Reviewed And Are Negative: No - Comments Additional Review of Systems Comments: Level 5 caveat secondary to AMS. Physical Exam - Summary Physical Exam Summary: Constitutional: Chronically ill-appearing, Alert. (-) Distressed Skin: Warm, Dry HENT: Dry mucous membranes; Atraumatic Eyes: Conjunctiva normal Neck: Musculoskeletal ROM normal neck. (-) JVD, (-) Nuchal rigidity Cardio: Rhythm regular, rate normal, Heart sounds normal; Intact distal pulses; Radial pulses are 2+ and symmetric. (-) Murmur Pulmonary/Chest wall: Effort normal. Port in the R chest wall. (-) Respiratory distress, (-) Wheezes, (-) Rales Abd: Soft. (-) Tenderness, (-) Distension, (-) Guarding, (-) Rebound Musculoskeletal: (-) Edema Lymph: (-) Cervical adenopathy Neuro: Alert, PERRL, Oriented x2, Mild dysarthria, Strength normal, Cranial nerves II-XII are grossly intact. SILT, Strength 5/5 BUE and BLE, (-) Dysmetria , (-) Nystagmus GCS: 14 Psych: Mood and affect Normal Triage Information Reviewed: Yes Vital Signs On Initial Exam: Initial Vitals Temp Pulse Resp BP Pulse Ox 99.7 F 104 16 105/80 95 11/08/19 06:36 11/08/19 06:36 11/08/19 06:36 11/08/19 06:36 11/08/19 06:36 Vital Signs Reviewed: Yes Completion Of Physical Exam Limited Due To: Altered Mental Status, Level 5 - [place] Coma Scale Best Eye Response: 4 - Spontaneous Best Motor Response: 6 - Obeys Commands Best Verbal Response: 4 - Confused Coma Scale Total: 14 Procedures - Sedation Patient Received Moderate/Deep Sedation with Procedure: No Diagnostics - Vital Signs Vital Signs Temp Pulse Resp BP Pulse Ox 11/08/19 06:40 105 97 11/08/19 06:36 99.7 F 104 16 105/80 95 - Laboratory Result Diagrams: 11/08/19 06:54 11/08/19 06:54 Lab Statement: Any lab studies that have been ordered have been reviewed, and results considered in the medical decision making process. Re-Evaluation - Re-Evaluation First Eval Re-Evaluation Time: 07:16 Change: Unchanged Comment: At 07:16, I spoke with the family. There is a plan to start hospice but this has not been initiated. She recently had an outpatient CT and is followed by Dr. Cleveland for metastatic peritoneal cancer, last chemotherapy 2 weeks ago. Patient is having difficulty communicating which is new, but she has had this in the past, which resolved. She received fluids on Friday at Hemo/Onc. Second Eval Re-Evaluation Time: 07:37 Change: Unchanged Comment: At 07:37, I will give dextrose, glucose, magnesium, and antibiotics. Third Eval Re-Evaluation Time: 08:37 Change: Unchanged Comment: At 08:37, I told the patient that Dr. Cleveland will see them in the ED. Altered Mental Statu Course/Dx - Course Course Of Treatment: 63 y/o F w metastatic ovarian cancer, hx CVA, p/w AMS/ fatigue. - On arrival to ED AAOx2,neuro exam notable for dysathria, LKW 2000 11/06, stroke alert not called given LKW. - d/w daughter who would currently like to proceed with full workup. CT head ordered, labs including LA and blood cultures ordered. Suspect 2/2 dehydration and decline in overall health. Given IVF. Signed out to Dr. Florian pending labwork and imaging. - Diagnoses Provider Diagnoses: AMS (altered mental status), Dysarthria Discharge ED - Sign-Out/Discharge Documenting (check all that apply): Sign-Out Patient Signing out patient TO: Ashly Florian - Patient is a sign-out to Dr. Ashly Florian MD, at change of shift at 0700 on 11/08/19, pending labs, EKG, CXR, Brain CT, and disposition. - Discharge Plan Condition: Stable Disposition: ADMITTED TO [facility] - Billing Disposition and Condition Condition: STABLE Disposition: Admitted to [facility] - Attestation Statements Document Initiated by Cory: Yes Documenting Scribe: Zulma Dumont Provider For Whom Cory is Documenting (Include Credential): Dr. Roland Smith MD Scribe Attestation: Zulma Ye scribed for Dr. Roland Smith MD on 11/09/19 at 0821. Scribe Documentation Reviewed: Yes Provider Attestation: The documentation as recorded by the Zulma armas accurately reflects the service I personally performed and the decisions made by me, Dr. Roland Smith MD Status of Scribe Document: Viewed
[2019-11-08 07:07] LABS: Hematocrit 34 % (35-47); Hemoglobin 11.7 g/dL (12.0-16.0); Mean Corpuscular HGB Conc 35 g/dL (31-36); Mean Corpuscular Hemoglobin 33 pg (27-31); Mean Corpuscular Volume 95 fL (80-97); Red Blood Count 3.58 10^6 /uL (3.70-4.87); Red Cell Distribution Width 19 % (10-15); White Blood Count 1.7 10^3/uL (3.5-10.8)
[2019-11-08 07:19] LABS: ALT 14 U/L (7-52); AST 31 U/L (13-39); Albumin 2.5 g/dL (3.2-5.2); Alkaline Phosphatase 58 U/L (34-104); Anion Gap 11 mmol/L (2-11); BUN/Creatinine Ratio 52.7 (8-20); Blood Urea Nitrogen 29 mg/dL (6-24); CO2 Carbon Dioxide 21 mmol/L (22-32); Calcium 7.5 mg/dL (8.6-10.3); Chloride 102 mmol/L (101-111); EGFR African American 135.5 (>60); Globulin 2.5 g/dL (2-4); Glucose 62 mg/dL (70-100); Magnesium 1.1 mg/dL (1.9-2.7); Potassium 3.9 mmol/L (3.5-5.0); Sodium 134 mmol/L (135-145)
[2019-11-08] MEDS ORDERED: NS 0.9% 1000 ML** 1,000 ML IV ONE (07:19)
[2019-11-08 07:22] LABS: Troponin I 0.01 ng/mL (<0.03)
[2019-11-08] MEDS ORDERED: Dextrose 50% Syringe 50 ML* 25 GM/50 ML SYRINGE IV PUSH ONE (07:37)
[2019-11-08] MEDS ORDERED: Magnesium Sulfate 2 GM IV* 2 GM/50 ML BAG IVPB ONE (07:38)
--- NOTE | 2019-11-08 07:39 | ED ---
Progress - Progress Note Progress Note: Patient is a sign out at 07:00 on 11/08/[address] Roland Smith MD to Dr. Ashly Florian MD at shift change, pending further workup and disposition. At 07:16, I spoke with the family. There is a plan to start hospice but this has not been initiated. She recently had an outpatient CT and is followed by Dr. Cleveland for metastatic peritoneal cancer, last chemotherapy 2 weeks ago. Patient is having difficulty communicating which is new, but she has had this in the past, which resolved. She received fluids on Friday at Hemo/Onc. At 07:37, I will give dextrose, glucose, magnesium, and antibiotics. At 08:29, Dr. Cristhian Cleveland recommends to hold antibiotics. He reviewed the patients case and agrees to admit the patient to [facility]. He will see the patient in the ED. At 08:37, I told the patient that Dr. Cleveland will see them in the ED. - Results/Orders Results/Orders: Brain CT IMPRESSION: No hemorrhage is noted. Infarct in the right frontal lobe appears to be old as there is no mass effect noted. Reviewed by Dr. Florian. Chest X-ray IMPRESSION: LOW LUNG VOLUMES. NO ACTIVE CARDIOPULMONARY DISEASE. Reviewed by Dr. Florian. EKG at 07:35 shows normal sinus rhythm with 98 BPM, no ST wave changes. Reviewed and interpreted by Dr. Florian. Re-Evaluation - Re-Evaluation First Eval Re-Evaluation Time: 07:16 Change: Unchanged Comment: At 07:16, I spoke with the family. There is a plan to start hospice but this has not been initiated. She recently had an outpatient CT and is followed by Dr. Cleveland for metastatic peritoneal cancer, last chemotherapy 2 weeks ago. Patient is having difficulty communicating which is new, but she has had this in the past, which resolved. She received fluids on Friday at Hemo/Onc. Second Eval Re-Evaluation Time: 07:37 Change: Unchanged Comment: At 07:37, I will give dextrose, glucose, magnesium, and antibiotics. Third Eval Re-Evaluation Time: 08:37 Change: Unchanged Comment: At 08:37, I told the patient that Dr. lCeveland will see them in the ED. Course/Dx - Course Course Of Treatment: neuro exam notable for dysathria, LKW 11/06, stroke alert not called given HUYEN. - Diagnoses Provider Diagnoses: AMS (altered mental status), Dysarthria - Provider Notifications Discussed Care Of Patient With: Cristhian Cleveland - At 08:29, Dr. Cristhian Cleveland recommends to hold antibiotics. He reviewed the patients case and agrees to admit the patient to [facility]. He will see the patient in the ED. Time Discussed With Above Provider: 08:29 Instructed by Provider To: Admit As Inpatient - Critical Care Time Critical Care Time: 30-74 min - 30 minutes CCT Discharge ED - Sign-Out/Discharge Documenting (check all that apply): Patient Departure - Admit, Receiving Sign- Out Receiving patient FROM: Roland Smith - Patient is a sign out at 07:00 on 11/08/[address] Roland Smith MD to Dr. Ashly Florian MD at shift change, pending further workup and disposition. - Discharge Plan Condition: Stable Disposition: ADMITTED TO [facility] - Attestation Statements Document Initiated by Scribe: Yes Documenting Scribe: Annabelle Crabtree Provider For Whom Scribe is Documenting (Include Credential): Ashly Florian MD Scribe Attestation: I, Annabelle Crabtree, scribed for Ashly Florian MD on 11/08/19 at 1552. Status of Scribe Document: Ready
[2019-11-08 07:44] LABS: Acanthocytes 1+; Burr Cells 1+
[2019-11-08 07:46] LABS: ABS Lymphocytes 0.2 10^3/ul (1.0-4.8); ABS Neutrophils 1.5 10^3/ul (1.5-7.7); Eosinophil % 0.7 %; Lymphocyte % 10.5 %; Mean Platelet Volume 7.7 fL (7.4-10.4); Nucleated Red Blood Cells % 0.2; Platelet Count 26 10^3/uL (150-450)
[2019-11-08 07:58] LABS: Salicylate < 2.50 mg/dL (<30)
[2019-11-08 08:10] LABS: TSH (Thyroid Stimulating Horm) 0.79 mcIU/mL (0.34-5.60)
[2019-11-08] MEDS ORDERED: oxyCODONE/Acetamin 5/325 MG* TAB PO PRN (09:03)
[2019-11-08] MEDS ORDERED: Magnesium Hydroxide LIQ* 30 ML UDC PO PRN (09:03)
[2019-11-08] MEDS ORDERED: Acetaminophen TAB* 325 MG PO PRN (09:03)
[2019-11-08] MEDS ORDERED: Ondansetron INJ* 2 MG/ML VIAL IV PRN (09:03)
[2019-11-08] MEDS ORDERED: Magnesium Sulfate IV* 3 GM in NS 0.9% 100 ML* 100 ML IVPB ONE (09:08)
[2019-11-08] MEDS ORDERED: Levofloxacin 500 MG IVPREMIX(* 500 MG/100 ML BAG IVPB SCH ×2 (10:00→13:00)
[2019-11-08 10:53] LABS: Urine Appearance Clear; Urine Bilirubin Negative (Negative); Urine Blood 2+ (Negative); Urine Color Amber; Urine Glucose 1+(50 mg/dL) (Negative); Urine Ketones Trace (Negative); Urine Nitrite Negative (Negative); Urine Protein 2+(100 mg/dL) (Negative); Urine Urobilinogen Negative (Negative)
[2019-11-08 10:55] LABS: Urine Bacteria Absent (Absent); Urine Red Blood Cell 2+(6-10/hpf) (Absent); Urine Squamous Epithelial Cell Present (Absent); Urine Transitional Epithelial Present (Absent); Urine White Blood Cell 1+(6-10/hpf) (Absent)
[2019-11-08] MEDS ORDERED: Scopolamine 1.5 mg* PATCH TRANSDERM PRN (11:45)
--- NOTE | 2019-11-08 12:58 | HP ---
HISTORY AND PHYSICAL: DATE OF ADMISSION: 11/08/19 CHIEF COMPLAINT: Confusion. IDENTIFICATION: A 64-year-old female with end-stage ovarian cancer. HISTORY OF PRESENT ILLNESS: Ms. Stovall has been under our care for an extended period of time for ovarian cancer. She has had multiple regimens of chemotherapy. She has most recently been treated with carboplatin and Taxol, carboplatin desensitization. She has had 2 cycles, third cycle is pending this coming week. Unfortunately, she has had a continued deterioration on her recent treatments. She has had increasing abdominal pain, decreasing appetite and decreasing p.o. intake. She was seen on clinic on Friday with complaints of diffuse abdominal pain and we discussed that with the current therapy likely bailing off hospice would be most appropriate. She went home over the weekend to talk to her family. She also had a very low magnesium at that time and was started on IV magnesium in the clinic with plans to give additional magnesium today. We also had planned a CT scan of the abdomen and pelvis today for full restaging. Unfortunately, and over the weekend, she continued to do poorly. Last night, she became very confused, weaker. Family could not help her out of bed and they came to the emergency room. This morning, she is cachectic, confused. She has a magnesium of 1.1, white count of 1.7, she is afebrile. In clinic with her daughter and her and again we discussed that this is primarily end-stage cancer. PAST MEDICAL HISTORY: 1. 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 She had initial debulking followed by intraperitoneal cisplatin and Taxol through November 2013. We changed to IV carboplatin and Taxol , which was completed in March 2014. She had progressive disease in January 2015, has had carboplatin and bevacizumab followed by bevacizumab alone, followed by olaparib, followed by 6 Taxol. She suffered side effects. She had progressed _ and now rechallenged with carboplatin and Taxol. 2. Hypertension. 3. GERD. 4. Anxiety. 5. History of peripheral neuropathy. PAST SURGICAL HISTORY: 1. Debulking surgery as noted above. 2. . 3. Knee surgery in the . FAMILY HISTORY: BRCA1 positive. Mother also had diabetes, hypertension, heart failure and there is coronary disease and pulmonary embolus in the family. SOCIAL HISTORY: She has a daughter who is a chemotherapy nurse, who is strong support. She has a who is supportive. She was a daily drinker but has weaned off recently 31 years. REVIEW OF SYSTEMS: In general, she is quite fatigued, not answering many questions. HEENT: Negative. Pulmonary: Negative. Cardiac: Negative. GI: No oral intake. Abdominal pain. She is having bowel movements, no vomiting. Musculoskeletal: Extremely weak. Neurologic: Disoriented. Skin: No breakdown. PHYSICAL EXAMINATION GENERAL: Cachectic and ill appearing female. VITAL SIGNS: Temperature 98.1, BP 108/74, pulse rate 94, respirations 15. HEENT: Oral mucosa dry. No thrush, no oral lesions. LUNGS: Clear to auscultation. HEART: Regular rhythm, S1, S2. ABDOMEN: Diffusely tender which is new. Moderate amount of ascites. EXTREMITIES: No clubbing, no cyanosis or edema. NEUROLOGIC: She is not oriented. She is answering questions and responding to voice. ASSESSMENT AND PLAN: A 64-year-old female with end-stage ovarian, admission with progressive abdominal pain and mental status changes. Differential diagnosis include progressive malnutrition and cancer. She could have peritonitis, dehydration and low magnesium. Discussed with the patient, the daughter and the admission for palliative care and hospice consultation. We will also replete her magnesium. Given the new abdominal tenderness, trial of antibiotics with levofloxacin. Discussed home and hospice residence at disposition and they elected to go home. 1. Admission. 2. IV fluids 100 cc an hour and replete mag 3 g today, then recheck tomorrow. 3. We are going to hold her lorazepam for mental status changes, her blood pressure medicine and Lipitor. 4. Oxycodone for pain. 5. Continue Reglan and scopolamine for nausea. 6. DNR/DNI, hospice consultation. [id number]/CPS #: [id number] KARLENE
[2019-11-08] MEDS: Enoxaparin(*) 40 MG/0.4 ML SYR SUBCUT SCH (13:11)
[2019-11-08] MEDS: NS 0.9% 1000 ML** 1,000 ML IV SCH ×2 (13:15→23:34)
--- NOTE | 2019-11-08 13:50 | CONSULT ---
Palliative / Hospice Consult Ordering Provider: Cristhian Cleveland Referal Reason: Goals of care/no bowel meds/percocet - Subjective Code Status: DNR Advance Directives Location: No Advance Directives MOLST Part A Completed: Yes - on chart MOLST Part E Completed:: Yes - on chart - History or Present Illness History or Present Illness: 64yo female with ovarian cancer with mets to peritoneum presents with AMS, poor po intake and vomiting. PMH is significant for ovarian ca serous papillary adenoma since 2012, HTN, diverticulosis, GERD and peripheral neuropathy. PSHx ex tob, no drug use, daily etoh but rare now, lives with Edgardo [phone] who is HCP and daughter Sammie who is alternate HCP and a chemotherapy nurse. 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 Pt admitted with dehydration and AMS. All history from family and medical record, pt unable to participate due to fatigue. Lab Values: Abnormal Lab Results 11/08/19 11/08/19 11/08/19 06:54 06:54 06:54 WBC 1.7 L RBC 3.58 L Hgb 11.7 L Hct 34 L MCV 95 MCH 33 H MCHC 35 RDW 19 H Plt Count 26 L MPV 7.7 Neut % (Auto) 88.1 Lymph % (Auto) 10.5 [place] % (Auto) 0.7 Eos % (Auto) 0.7 Baso % (Auto) 0.0 Absolute Neuts (auto) 1.5 Absolute Lymphs (auto) 0.2 L Absolute Monos (auto) 0.0 Absolute Eos (auto) 0.0 Absolute Basos (auto) 0.0 Absolute Nucleated RBC 0.0 Immature Gran % 26.0 H Neutrophils % 63.0 Band Neutrophils % 24.0 H Lymphocytes % 10.0 Monocytes % 1.0 Metamyelocytes % 2.0 Nucleated RBC % 0.2 Toxic Granulation 1+ Dohle Bodies Present Normal RBC Morphology Not Reportable Anisocytosis 1+ [place] Cells 1+ Elliptocytes 1+ Acanthocytes (Spur) 1+ Sodium 134 L Potassium 3.9 Chloride 102 Carbon Dioxide 21 L Anion Gap 11 BUN 29 H Creatinine 0.55 Est GFR ( Amer) 135.5 Est GFR (Non-Af Amer) 112.0 BUN/Creatinine Ratio 52.7 H Glucose 62 L Lactic Acid 1.4 Calcium 7.5 L Magnesium 1.1 L Total Bilirubin 1.50 H AST 31 ALT 14 Alkaline Phosphatase 58 Ammonia Troponin I 0.01 Total Protein 5.0 L Albumin 2.5 L Globulin 2.5 Albumin/Globulin Ratio 1.0 Lipase < 10 L TSH 0.79 Urine Color Urine Appearance Urine pH Ur Specific [place] Urine Protein Urine Ketones Urine Blood Urine Nitrate Urine Bilirubin Urine Urobilinogen Ur Leukocyte Esterase Urine WBC (Auto) Urine RBC (Auto) Ur Squamous Epith Cells Ur Transition Epith Cell Urine Bacteria Urine Glucose Salicylates < 2.50 11/08/19 11/08/19 06:54 10:20 WBC RBC Hgb Hct MCV MCH MCHC RDW Plt Count MPV Neut % (Auto) Lymph % (Auto) [place] % (Auto) Eos % (Auto) Baso % (Auto) Absolute Neuts (auto) Absolute Lymphs (auto) Absolute Monos (auto) Absolute Eos (auto) Absolute Basos (auto) Absolute Nucleated RBC Immature Gran % Neutrophils % Band Neutrophils % Lymphocytes % Monocytes % Metamyelocytes % Nucleated RBC % Toxic Granulation Dohle Bodies Normal RBC Morphology Anisocytosis [place] Cells Elliptocytes Acanthocytes (Spur) Sodium Potassium Chloride Carbon Dioxide Anion Gap BUN Creatinine Est GFR ( Amer) Est GFR (Non-Af Amer) BUN/Creatinine Ratio Glucose Lactic Acid Calcium Magnesium Total Bilirubin AST ALT Alkaline Phosphatase Ammonia 81 H Troponin I Total Protein Albumin Globulin Albumin/Globulin Ratio Lipase TSH Urine Color Vickie Urine Appearance Clear Urine pH 5.0 Ur Specific [place] 1.030 Urine Protein 2+(100 mg/dl) A Urine Ketones Trace A Urine Blood 2+ A Urine Nitrate Negative Urine Bilirubin Negative Urine Urobilinogen Negative Ur Leukocyte Esterase Negative Urine WBC (Auto) 1+(6-10/hpf) A Urine RBC (Auto) 2+(6-10/hpf) A Ur Squamous Epith Cells Present A Ur Transition Epith Cell Present A Urine Bacteria Absent Urine Glucose 1+(50 mg/dl) A Salicylates Laboratory Last Values WBC 1.7 10^3/uL (3.5-10.8) L 11/08/19 06:54 RBC 3.58 10^6 /uL (3.70-4.87) L 11/08/19 06:54 Hgb 11.7 g/dL (12.0-16.0) L 11/08/19 06:54 Hct 34 % (35-47) L 11/08/19 06:54 MCV 95 fL (80-97) 11/08/19 06:54 MCH 33 pg (27-31) H 11/08/19 06:54 MCHC 35 g/dL (31-36) 11/08/19 06:54 RDW 19 % (10-15) H 11/08/19 06:54 Plt Count 26 10^3/uL (150-450) L 11/08/19 06:54 MPV 7.7 fL (7.4-10.4) 11/08/19 06:54 Neut % (Auto) 88.1 % 11/08/19 06:54 Lymph % (Auto) 10.5 % 11/08/19 06:54 [place] % (Auto) 0.7 % 11/08/19 06:54 Eos % (Auto) 0.7 % 11/08/19 06:54 Baso % (Auto) 0.0 % 11/08/19 06:54 Absolute Neuts (auto) 1.5 10^3/ul (1.5-7.7) 11/08/19 06:54 Absolute Lymphs (auto) 0.2 10^3/ul (1.0-4.8) L 11/08/19 06:54 Absolute Monos (auto) 0.0 10^3/ul (0-0.8) 11/08/19 06:54 Absolute Eos (auto) 0.0 10^3/ul (0-0.6) 11/08/19 06:54 Absolute Basos (auto) 0.0 10^3/ul (0-0.2) 11/08/19 06:54 Absolute Nucleated RBC 0.0 10^3/ul 11/08/19 06:54 Immature Gran % 26.0 % (0-9) H 11/08/19 06:54 Neutrophils % 63.0 % 11/08/19 06:54 Band Neutrophils % 24.0 % (0-8) H 11/08/19 06:54 Lymphocytes % 10.0 % 11/08/19 06:54 Monocytes % 1.0 % 11/08/19 06:54 Metamyelocytes % 2.0 % (0-2) 11/08/19 06:54 Nucleated RBC % 0.2 11/08/19 06:54 Toxic Granulation 1+ 11/08/19 06:54 Dohle Bodies Present 11/08/19 06:54 Normal RBC Morphology Not Reportable 11/08/19 06:54 Anisocytosis 1+ 11/08/19 06:54 [place] Cells 1+ 11/08/19 06:54 Elliptocytes 1+ 11/08/19 06:54 Acanthocytes (Spur) 1+ 11/08/19 06:54 Sodium 134 mmol/L (135-145) L 11/08/19 06:54 Potassium 3.9 mmol/L (3.5-5.0) 11/08/19 06:54 Chloride 102 mmol/L (101-111) 11/08/19 06:54 Carbon Dioxide 21 mmol/L (22-32) L 11/08/19 06:54 Anion Gap 11 mmol/L (2-11) 11/08/19 06:54 BUN 29 mg/dL (6-24) H 11/08/19 06:54 Creatinine 0.55 mg/dL (0.51-0.95) 11/08/19 06:54 Est GFR ( Amer) 135.5 (>60) 11/08/19 06:54 Est GFR (Non-Af Amer) 112.0 (>60) 11/08/19 06:54 BUN/Creatinine Ratio 52.7 (8-20) H 11/08/19 06:54 Glucose 62 mg/dL (70-100) L 11/08/19 06:54 Lactic Acid 1.4 mmol/L (0.5-2.0) 11/08/19 06:54 Calcium 7.5 mg/dL (8.6-10.3) L 11/08/19 06:54 Magnesium 1.1 mg/dL (1.9-2.7) L 11/08/19 06:54 Total Bilirubin 1.50 mg/dL (0.2-1.0) H 11/08/19 06:54 AST 31 U/L (13-39) 11/08/19 06:54 ALT 14 U/L (7-52) 11/08/19 06:54 Alkaline Phosphatase 58 U/L (34-104) 11/08/19 06:54 Ammonia 81 mcmol/L (16-53) H 11/08/19 06:54 Troponin I 0.01 ng/mL (<0.03) 11/08/19 06:54 Total Protein 5.0 g/dL (6.4-8.9) L 11/08/19 06:54 Albumin 2.5 g/dL (3.2-5.2) L 11/08/19 06:54 Globulin 2.5 g/dL (2-4) 11/08/19 06:54 Albumin/Globulin Ratio 1.0 (1-3) 11/08/19 06:54 Lipase < 10 U/L (11.0-82.0) L 11/08/19 06:54 TSH 0.79 mcIU/mL (0.34-5.60) 11/08/19 06:54 Urine Color Vickie 11/08/19 10:20 Urine Appearance Clear 11/08/19 10:20 Urine pH 5.0 (5-9) 11/08/19 10:20 Ur Specific [place] 1.030 (1.010-1.030) 11/08/19 10:20 Urine Protein 2+(100 mg/dl) (Negative) A 11/08/19 10:20 Urine Ketones Trace (Negative) A 11/08/19 10:20 Urine Blood 2+ (Negative) A 11/08/19 10:20 Urine Nitrate Negative (Negative) 11/08/19 10:20 Urine Bilirubin Negative (Negative) 11/08/19 10:20 Urine Urobilinogen Negative (Negative) 11/08/19 10:20 Ur Leukocyte Esterase Negative (Negative) 11/08/19 10:20 Urine WBC (Auto) 1+(6-10/hpf) (Absent) A 11/08/19 10:20 Urine RBC (Auto) 2+(6-10/hpf) (Absent) A 11/08/19 10:20 Ur Squamous Epith Cells Present (Absent) A 11/08/19 10:20 Ur Transition Epith Cell Present (Absent) A 11/08/19 10:20 Urine Bacteria Absent (Absent) 11/08/19 10:20 Urine Glucose 1+(50 mg/dl) (Negative) A 11/08/19 10:20 Salicylates < 2.50 mg/dL (<30) 11/08/19 06:54 - Objective Active Medications: Acetaminophen (Tylenol Tab*) 650 mg PO Q4H PRN PRN Reason: PAIN - MILD Enoxaparin Sodium (Lovenox(*)) 40 mg SUBCUT Q24H [facility] Last Admin: 11/08/19 13:11 Dose: Not Given Escitalopram Oxalate (Lexapro *) 20 mg PO DAILY [facility] Sodium Chloride (Ns 0.9% 1000 Ml) 1,000 mls @ 100 mls/hr IV PER RATE [facility] Last Admin: 11/08/19 13:15 Dose: 100 mls/hr Levofloxacin/Dextrose (Levaquin 500 Mg Ivpremix(*)) 500 mg in 100 mls @ 100 mls /hr IVPB 1300 ANTHONY; Protocol Last Admin: 11/08/19 13:15 Dose: 100 mls/hr Magnesium Hydroxide (Milk Of Magnesia Liq*) 30 ml PO Q4H PRN PRN Reason: CONSTIPATION Metoclopramide HCl (Reglan Tab*) 10 mg PO TID [facility] Ondansetron HCl (Zofran Inj*) 4 mg IV Q4H PRN PRN Reason: NAUSEA/VOMITING Oxycodone/Acetaminophen (Percocet 5/325 Tab*) 1 tab PO Q4H PRN PRN Reason: PAIN - MODERATE Pantoprazole Sodium (Protonix Tab*) 40 mg PO DAILY [facility] Scopolamine (Transderm-Scop 1.5 Mg Patch*) 1 patch TRANSDERM Q72H PRN PRN Reason: NAUSEA Vital Signs: Vital Signs: Temp Pulse Resp BP Pulse Ox 97.6 F 50 16 95/61 99 11/08/19 12:04 11/08/19 12:04 11/08/19 12:04 11/08/19 12:04 11/08/19 12:04 Patient Weight: Weight 43.091 kg Intake and Output: Intake & Output 11/06/19 11/07/19 11/08/19 11/09/19 06:59 06:59 06:59 06:59 Intake Total 1050 Balance 1050 Weight 43.091 kg Intake: IV Fluids 1050 ADLs: Meal Record Start: 11/08/19 11: 25 Freq: DAILY@0900,1400,1800 Status: Active Protocol: Created 11/08/19 11:25 System (Rec: 11/08/19 11:25 System [id number]) Intake and Output Start: 11/08/19 06: 40 Freq: Status: Active Protocol: Created 11/08/19 06:40 System (Rec: 11/08/19 06:40 System [id number]) Intake and Output Start: 11/08/19 11: 25 Freq: DAILY@0600,1400,2200 Status: Active Protocol: Created 11/08/19 11:25 System (Rec: 11/08/19 11:25 System [id number]) Head: Normal Eyes: No Scleral Icterus Ears/Nose/Mouth/Throat: NL Teeth, Lips, Gums Neck: NL Appearance and Movements; NL JVP Cardiovascular: NL Sounds; No Murmurs; No JVD Respiratory: Symmetrical Chest Expansion and Respiratory Effort Neurological: - - alert but drowsy - Assessment Assessment: 64yo female with ovarian ca with mets to peritoneum, family requesting hospice - Plan Consult Plan (MU): Hospice Plan: Long discussion with pt's and daughter about goals of care. Family noted pt's sudden change in mental status and overall decline in the last few weeks. Pt has expressed that she wants to be at home and family is okay caring for her at home. MOLST was completed with DNR/DNI no feeding tube and comfort care. Hospice information/brochure given and discussed. Family would like to proceed with hospice. Spoke with case management hospice referral sent to [facility](phone number given) and will be needing commode and hospital bed. Hospice eligibility based on diagnosis of ovarian cancer with mets(stage 4) to peritoneum. KPS 30%, PPS 30% - Time On Unit Date of Evaluation: 11/08/19 Hospice Consult Time in: 13:00 Hospice Consult Time Out: 14:00 Hospice Consult Time Total: 60 > 50% of Time Spend In Counseling or Coordinating Care: Yes
[2019-11-08] MEDS: Metoclopramide TAB* 10 MG PO SCH ×2 (14:47→20:22)
[2019-11-08] MEDS: Nicotine PATCH 21 MG/24 HR* PATCH TRANSDERM SCH (15:00)
[2019-11-08] MEDS ORDERED: Nicotine Patch Removal NOTE FOLLOW UP SCH (21:00)
[2019-11-08 21:04] LABS: Urine Appearance Cloudy; Urine Bilirubin 1+ (Negative); Urine Blood 2+ (Negative); Urine Color Amber; Urine Glucose Negative (Negative); Urine Ketones Negative (Negative); Urine Nitrite Negative (Negative); Urine Protein 1+(30 mg/dL) (Negative); Urine Urobilinogen Negative (Negative)
[2019-11-08 21:08] LABS: Urine Bacteria Absent (Absent); Urine Red Blood Cell 1+(3-5/hpf) (Absent); Urine White Blood Cell Trace(0-5/hpf) (Absent)
[2019-11-08] MEDS: LORazepam TAB(*) 1 MG PO PRN (21:21)
[2019-11-09] MEDS: LORazepam TAB(*) 1 MG PO PRN (07:54)
[2019-11-09] MEDS ORDERED: Escitalopram * 20 MG TABLET PO SCH (09:00)
[2019-11-09] MEDS ORDERED: Pantoprazole TAB * 40 MG TAB PO SCH (09:00)
[2019-11-09] MEDS: Nicotine PATCH 21 MG/24 HR* PATCH TRANSDERM SCH (10:12)
[2019-11-09] MEDS: NS 0.9% 1000 ML** 1,000 ML IV SCH (10:13)
[2019-11-09] MEDS: Enoxaparin(*) 40 MG/0.4 ML SYR SUBCUT SCH (10:42)
[2019-11-09] MEDS ORDERED: ceFOXitin 2 GM IVPREMIX* 2 GM/50 ML BAG IVPB SCH (11:00)
[2019-11-09] MEDS: Metoclopramide TAB* 10 MG PO SCH ×2 (11:28→14:16)
--- NOTE | 2019-11-09 12:16 | DS ---
- Discharge Summary Admission Date: 11/08/19 Discharge Date: 11/09/19 Discharge Diagnosis: 1. End stage ovarian cancer: home with hospice sign on tomorrow AM 2. K.Pneumonia Bacteremia: suspect UTI vs. SBP as source, s/p 24 hours of IV antibiotics with some improvement in mental status, family recognizes that despite attempts at treatment of this acute event it will not change her overall prognosis and have decided to proceed with her wishes to be at home, she will go home on an oral third-generation cephalosporin 3. Encephalopathy: secondary to end-stage disease with liver failure and bacteremia, slightly improved overnight Discharge Medications: Medication Instructions Recorded Confirmed Type Oxycodone Cap(Nf) [Oxy IR (NF) 5 mg PO Q6HR PRN 11/16/13 11/08/19 History (this brand D/C by )] Ondansetron HCl [Zofran 8 MG TAB] 8 mg PO TID PRN 01/13/17 11/08/19 History Scopolamine 1.5 mg* PATCH* 1 patch TRANSDERM Q72H PRN 10/25/19 11/08/19 History [Transderm-Scop 1.5 mg Patch*] Escitalopram * [Lexapro *] 20 mg PO DAILY 11/08/19 11/08/19 History Metoclopramide TAB* [Reglan TAB*] 10 mg PO TID 11/08/19 11/08/19 History Acetaminophen TAB* [Tylenol TAB*] 650 mg PO Q4H PRN tab 11/09/19 Rx Cefdinir cap* [Cefdinir 300 MG cap 300 mg PO BID #10 cap 11/09/19 Rx (NF)] LORazepam TAB(*) [Ativan 1 MG TAB 1 mg PO Q4HR PRN tab 11/09/19 Rx (*)] Morphine ORAL CONCENTRATE* 5 - 10 mg SL Q2H #30 ml MDD 120 mg 11/09/19 Rx Nicotine PATCH 21 MG/24 HR* 1 patch TRANSDERM DAILY patch 11/09/19 Rx Condition: guarded Disposition: home with hospice Activity: turn and position for comfort Diet: PO intake as tolerated, intake for comfort Hospital Course: Please see admission not for full H&P, however, briefly, Mrs. Villanueva is well known to our service due to her unfortunate diagnosis of metastatic ovarian cancer. She was originally diagnosed in September 2013 s/p debulking 10/22/13 following by adjuvant therapy with progression in January of 2015. This this time she has been on various therapies including PARP inhibition due to known BRCA 1 mutation. Most recently she had been receiving a desensitization protocol for Carboplatin as well as Paclitaxel s/p C2 on 10/25/19. She was tolerating treatment, however had continued progression of symptoms and as of 11/05/19 decision to restage and consider continuation of therapy versus hospice was made. Mrs. Villanueva presented to the ER via EMS in the AM on 11/08/19 with altered mental status. Apparently she had been declining for a day or so and overnight 11/07/19 she had a marked decline with garbled speech. In the ER a CT of the brain was obtained and this was negative for acute findings. A chest x-ray was negative for effusion and pneumonia. Lab revealed a WBC 1.7 with 24% bands, platelets 26K, Sodium 134, Cr 0.55, Mg 1.1, Albumin 2.5, bilirubin 1.5, ammonia 81, lactic acid 1.4. She was afebrile with mild hypotension consistent with her baseline. She was admitted with presumed failure to thrive due to end stage disease, however she had progressive abdominal pain with tenderness therefore decision to treat empirically for potential spontaneous bacterial peritonitis was made and she was started on IV Levaquin. Blood cultures and urine cultures were obtained. That evening she was seen in consultation by palliative MD Nicole. Apparently per her family she had made the decision over the weekend to proceed with hospice and as such they signed a MOLST and decided to attempt to get her home (her wishes) with hospice. Overnight her blood cultures returned 4/4 positive for gram negative bacilli. She was slightly more lucid, however has not been eating with only moderate PO fluid intake. She has lost almost 20 pounds since her last treatment. Mrs. Villanueva's condition and prognosis were discussed with her family at length. Her blood cultures resulted for 4/4 positive with Klebsiella Pneumonia therefore her bactermia may be secondary to a UTI or peritonitis. Despite this is unlikely that treatment will improve her prognosis significantly and the family is aware she likely has days left. They feel strongly she would want to be home and have requested a discharge today and a plan for hospice sign on with Arlyn will occur tomorrow 11/10/19 AM. She will be discharge with oral morphine, PO ativan, and PO Cefdinir to complete a 7 days course and plan to re-evaluate with hospice continuation of antibiotics at that time. With limited PO intake and known bacteremia I suspect she will decline rapidly. Her daughter is a nurse and feels comfortable going home with sign-on tomorrow AM. Case discussed at length with family and palliative care team.
[2019-11-09 12:32] VITALS: BP 113/63
== END 2019-11-09 14:20 | disposition hospice, home (50) | DRG 441 ==
LOC: ED 06:34 → MED 09:03
PROVIDERS: ADMIT Internal Medicine Hematology & Oncology; ATTEND Internal Medicine Hematology & Oncology
DX: K72.90 Hepatic failure, unspecified without coma (principal); K65.2 Spontaneous bacterial peritonitis; C78.6 Secondary malignant neoplasm of retroperitoneum and peritoneum; R78.81 Bacteremia; N39.0 Urinary tract infection, site not specified; Z66 Do not resuscitate; I10 Essential (primary) hypertension; K57.90 Diverticulosis of intestine, part unspecified, without perforation or abscess without bleeding; K21.9 Gastro-esophageal reflux disease without esophagitis; G62.9 Polyneuropathy, unspecified; E86.0 Dehydration; G43.909 Migraine, unspecified, not intractable, without status migrainosus; F41.9 Anxiety disorder, unspecified; R40.2362 Coma scale, best motor response, obeys commands, at arrival to emergency department; R40.2142 Coma scale, eyes open, spontaneous, at arrival to emergency department; R40.2242 Coma scale, best verbal response, confused conversation, at arrival to emergency department; I95.9 Hypotension, unspecified; B96.1 Klebsiella pneumoniae [K. pneumoniae] as the cause of diseases classified elsewhere; Z87.891 Personal history of nicotine dependence; Z88.8 Allergy status to other drugs, medicaments and biological substances; Z91.048 Other nonmedicinal substance allergy status
CPT/HCPCS: 36415; 70450; 71045; 80053; 80329; 81003; 81015; 82140; 83605; 83690; 83735; 84443; 84484; 85025; 87040; 87077; 87086; 87186; 87205; 93005; 96365; 99223; 99239; 99284; A9270-GY; G0480; J0694; J1642; J1956; J3475